=== PATIENT | female | born 1985 | race American Indian/Alaskan Native ===

== ENCOUNTER 2020-07-14 00:19 | Emergency (ER) | payer MEDICAID ==
[2020-07-14 02:00] VITALS: BP 128/72
[2020-07-14] MEDS ORDERED: ONDANSETRON 4 MG/2 ML INJ IV ONE (02:57)
[2020-07-14] MEDS ORDERED: FAMOTIDINE 20 MG/2 ML INJ IV ONE (02:57)
[2020-07-14] MEDS ORDERED: MORPHINE 4 MG/1 ML INJ IV ONE (02:57)
[2020-07-14 03:04] LABS: Basophils % (Auto) 0.2 % (0.0-1.8); Hematocrit 29.9 % (30.3-42.9); Hemoglobin 9.9 gm/dl (10.1-14.3); Lymphocytes # (Auto) 0.7 K/mm3 (1.2-5.4); Lymphocytes % (Auto) 8.6 % (13.4-35.0); Mean Corpuscular HGB Conc 33 % (30-34); Mean Corpuscular Volume 79 fl (79-97); Monocytes # (Auto) 0.2 K/mm3 (0.0-0.8); Monocytes % (Auto) 2.7 % (0.0-7.3); Platelet Count 307 K/mm3 (140-440); Red Blood Count 3.79 M/mm3 (3.65-5.03); Red Cell Distribution Width 13.4 % (13.2-15.2)
[2020-07-14 03:17] LABS: Alanine Aminotransferase 7 units/L (7-56); Albumin 3.8 g/dL (3.9-5); Blood Urea Nitrogen 8 mg/dL (7-17); Calcium 8.6 mg/dL (8.4-10.2); Hemolysis Index 1
[2020-07-14 03:18] LABS: BUN/Creatinine Ratio 13
[2020-07-14 03:29] LABS: Bacteria,Urine 1+ /HPF (Negative); Bilirubin,Urine NEG (Negative); Blood,Urine NEG (Negative); Color,Urine Yellow (Yellow); Mucus,Urine 3+ /HPF; Urobilinogen,Urine < 2.0 mg/dL (<2.0)
--- NOTE | 2020-07-14 05:19 | Cat Scan Report ---
CT ABDOMEN AND PELVIS WITH CONTRAST INDICATION: abdominal pain CONTRAST: 100 cc Omnipaque 300 IV COMPARISON: None available. All CT scans at this location are performed using CT dose reduction for ALARA by means of automated e xposure control. FINDINGS: Lung bases are clear. Calcified nodes are seen in the right hilum. In the subcutaneous tissues of the gluteal regions bilaterally extending into the lower back, symmetr ic extensive stool patchy areas of increased density are seen with a mildly nodular appearance though linear density predominates. These areas measure up to 62 Hounsfield units in density and thus are m oderately hyperdense. Largest single confluent area is noted laterally on the left measuring 18 mm bu t the density is widespread in this region. This extends in the fat medially on both right and left i n the gluteal areas. I do not see an obvious muscular abnormality however. This process is not seen m ore superiorly in the abdominal subcutaneous tissues. Multiple small hypodensities in the liver probably are cysts. No other abdominal masses are seen. Gal lbladder and bile ducts appear within normal limits. No retroperitoneal or pelvic hemorrhage is seen. No urinary obstructive changes are noted. No evidence of bowel obstruction is seen. Appendix is not visualized. Small amount of nonspecific free fluid is seen in the pelvis. No adnexal masses are seen. IMPRESSION: 1. No acute abnormalities are seen in the abdomen or pelvis 2. Unusual extensive subcutaneous density in the gluteal regions bilaterally as described. This could be due to extensive subcutaneous hemorrhage but the symmetric and extensive appearance suggests a ch ronic process. This has a nodular component. I do not see this extending into the abdomen or pelvis a nd no muscular involvement is seen. Etiology is unclear. Clinical correlation in these areas is shaun sun. Signer Name: Jd Campos MD Signed: 07/14/2020 5:14 AM Workstation Name: [id number]
--- NOTE | 2020-07-14 06:07 | Emergency Department Report ---
ED Abdominal Pain HPI - General Chief Complaint: Abdominal Pain Stated Complaint: NAUSEA/VOMITING/ABDOMINAL PAIN Source: patient, EMS Mode of arrival: Ambulatory Limitations: No Limitations - History of Present Illness Initial Comments: Patient is a nulliparous 34-year-old -[place] female with no past medical history presents to the ED with complaint of acute onset persistent severe diffuse abdominal pain with intractable nausea and vomiting for the last 2 days. Patient states that she has not been able to keep anything down especially in the last 24 hours. Patient states that she was initially evaluated at another hospital but her symptoms have been persistent even after being discharged from the same hospital. Patient denies diarrhea, dysuria, urinary frequency and urgency, chest pain, shortness of breath, fever, chills, cough, vaginal bleeding, vaginal discharge, low back pain, traumatic injury, headache or dizziness. MD Complaint: abdominal pain, other (nausea and vomiting) -: Sudden, week(s) (1) Location: diffuse Radiation: none Migration to: no migration Severity: severe Severity scale (0 -10): 8 Quality: cramping, aching, sharp Consistency: constant Improves With: nothing Worsens With: eating, vomiting Associated Symptoms: nausea, vomiting. denies: fever, constipation, dysuria, hematemesis, melena, anorexia - Related Data LMP Date: 06/20/20 Previous Rx's Medication Instructions Recorded Last Taken Type Dicyclomine [Bentyl] 20 mg PO Q6H PRN #30 tablet 07/14/20 Unknown Rx Famotidine [Pepcid] 20 mg PO BID #40 tablet 07/14/20 Unknown Rx Ondansetron [Zofran Odt] 4 mg PO Q6HR PRN #20 tab.rapdis 07/14/20 Unknown Rx Allergies Allergy/AdvReac Type Severity Reaction Status Date / Time No Known Allergies Allergy Unverified 07/14/20 02:00 ED Review of Systems ROS: Stated complaint: NAUSEA/VOMITING/ABDOMINAL PAIN Other details as noted in HPI Constitutional: denies: chills, fever Eyes: denies: eye pain, eye discharge, vision change ENT: denies: ear pain, throat pain Respiratory: denies: cough, shortness of breath, wheezing Cardiovascular: denies: chest pain, palpitations Endocrine: no symptoms reported Gastrointestinal: abdominal pain, nausea, vomiting. denies: diarrhea Genitourinary: denies: urgency, dysuria, discharge Musculoskeletal: denies: back pain, joint swelling, arthralgia Skin: denies: rash, lesions Neurological: denies: headache, weakness, paresthesias Psychiatric: denies: anxiety, depression Hematological/Lymphatic: denies: easy bleeding, easy bruising ED Past Medical Hx - Past Medical History Previous Medical History?: No - Surgical History Past Surgical History?: No - Social History Smoking Status: Never Smoker Substance Use Type: None - Medications Home Medications: Home Medications Medication Instructions Recorded Confirmed Last Taken Type Dicyclomine [Bentyl] 20 mg PO Q6H PRN #30 tablet 07/14/20 Unknown Rx Famotidine [Pepcid] 20 mg PO BID #40 tablet 07/14/20 Unknown Rx Ondansetron [Zofran Odt] 4 mg PO Q6HR PRN #20 tab.rapdis 07/14/20 Unknown Rx ED Physical Exam - General Limitations: No Limitations General appearance: alert, in no apparent distress - Head Head exam: Present: atraumatic, normocephalic, normal inspection - Eye Eye exam: Present: normal appearance, PERRL, EOMI Pupils: Present: normal accommodation - ENT ENT exam: Present: normal exam, normal orophraynx, mucous membranes moist, TM's normal bilaterally, normal external ear exam - Neck Neck exam: Present: normal inspection, full ROM - Respiratory Respiratory exam: Present: normal lung sounds bilaterally. Absent: respiratory distress, wheezes, rales, rhonchi, stridor, chest wall tenderness, accessory mus lizzy use, decreased breath sounds, prolonged expiratory - Cardiovascular Cardiovascular Exam: Present: normal rhythm, tachycardia, normal heart sounds. Absent: systolic murmur, diastolic murmur, rubs, gallop - GI/Abdominal GI/Abdominal exam: Present: soft, tenderness (Palpable diffuse abdominal tenderness), normal bowel sounds, hyperactive bowel sounds. Absent: guarding, rebound, rigid - Bi-manual exam: Present: other (Pelvic exam deferred, patient declined) - Extremities Exam Extremities exam: Present: normal inspection, full ROM, normal capillary refill - Back Exam Back exam: Present: normal inspection, full ROM. Absent: tenderness, CVA tenderness (R), CVA tenderness (L), muscle spasm, paraspinal tenderness - Neurological Exam Neurological exam: Present: alert, oriented X3, CN II-XII intact, normal gait, reflexes normal - Psychiatric Psychiatric exam: Present: normal affect, normal mood, anxious - Skin Skin exam: Present: warm, dry, intact, normal color. Absent: rash ED Course Vital Signs 07/14/20 01:47 Temperature 99.0 F Pulse Rate 101 H Respiratory 16 Rate Blood Pressure 128/72 O2 Sat by Pulse 100 Oximetry ED Medical Decision Making - Lab Data Result diagrams: 07/14/20 02:37 07/14/20 02:37 - Radiology Data Radiology results: report reviewed, image reviewed [facility] [address] [place] [address] Cat Scan Report Signed Patient: DONTA PIERSON MR#: [id number] : 1985 Acct:[id number] Age/Sex: 34 / F ADM Date: 07/14/20 Loc: ED Attending Dr: Ordering Physician: PETER GÓMEZ Date of Service: 07/14/20 Procedure(s): CT abdomen pelvis w con Accession Number(s): [id number] cc: PETER GÓMZE CT ABDOMEN AND PELVIS WITH CONTRAST INDICATION: abdominal pain CONTRAST: 100 cc Omnipaque 300 IV COMPARISON: None available. All CT scans at this location are performed using CT dose reduction for ALARA by means of automated exposure control. FINDINGS: Lung bases are clear. Calcified nodes are seen in the right hilum. In the subcutaneous tissues of the gluteal regions bilaterally extending into the lower back, symmetric extensive stool patchy areas of increased density are seen with a mildly nodular appearance though linear density predominates. These areas measure up to 62 Hounsfield units in density and thus are moderately hyperdense. Largest single confluent area is noted laterally on the left measuring 18 mm but the density is widespread in this region. This extends in the fat medially on both right and left in the gluteal areas. I do not see an obvious muscular abnormality however. This process is not seen more superiorly in the abdominal subcutaneous tissues. Multiple small hypodensities in the liver probably are cysts. No other abdomina l masses are seen. Gallbladder and bile ducts appear within normal limits. No retroperitoneal or pe lvic hemorrhage is seen. No urinary obstructive changes are noted. No evidence of bowel obstruction is seen. Appendix is not visualized. Small amount of nonspecific free fluid is seen in the pelvis. No adnexal masses are seen. IMPRESSION: 1. No acute abnormalities are seen in the abdomen or pelvis 2. Unusual extensive subcutaneous density in the gluteal regions bilaterally as described. This could be due to extensive subcutaneous hemorrhage but the symmetric and extensive appearance suggests a chronic process. This has a nodular component. I do not see this extending into the abdomen or pelvis and no muscular involvement is seen. Etiology is unclear. Clinical correlation in these areas is suggested. Signer Name: Jd Campos MD Signed: 07/14/2020 5:14 AM Workstation Name: [id number] Transcribed By: CHRISTOPHER Dictated By: Jd Campos MD Electronically Authenticated By: Jd Campos MD Signed Date/Time: 07/14/20513 DD/ 6 TD/TT: - Medical Decision Making This is a nulliparous 34-year-old -[place] female with no past medical history presents to the ED with complaint of acute onset persistent severe diffuse abdominal pain with intractable nausea and vomiting for the last 2 days. Patient states that she has not been able to keep anything down especially in the last 24 hours. Patient states that she was initially evaluated at another hospital but her symptoms have been persistent even after being discharged from the same hospital. In the ED, patient is alert and oriented x3 and is not in distress, anxious, dramatic, rolling on the floor to show how severe her symptoms are but is otherwise hemodynamically stable. Patient asking for specific pain medications, mainly morphine and Benadryl "to calm me down" during the physical exam. Lab test results were reviewed and are all nonactionable. Patient was treated for pain in the ED and also given antiemetics, normal saline, and antacids. Abdomen pelvis CT scan with contrast showed no acute abnormalities. On reevaluation, patient symptoms resolved with medications. Patient was discharged home on prescriptions of pain medications and antiemetics and advised to follow-up with her primary care physician in 3 to 5 days for reevaluation. Patient was advised to return to the ED immediately if symptoms get worse. - Differential Diagnosis Gastroenteritis; appendicitis; ovarian cyst; pancreatitis; GERD; UTI; kidne Critical care attestation.: If time is entered above; I have spent that time in minutes in the direct care of this critically ill patient, excluding procedure time. ED Disposition Clinical Impression: Abdominal pain, generalized, Nausea and vomiting in adult patient, Viral gastroenteritis Disposition: DC-01 TO HOME OR SELFCARE Is pt being admited?: No Does the pt Need Aspirin: No Condition: Stable Instructions: Abdominal Pain (ED), Abdominal Pain, Adult, [id number], Nausea and Vomiting, Adult, [id number] Additional Instructions: All lab test results are reviewed and are all nonactionable. Abdomen pelvis CT scan with contrast showed no acute abnormalities. Your symptoms are likely due to viral gastroenteritis. Therefore maintain a clear liquid diet for 12 to 24 hours, take medications with food, drink plenty of fluids and follow-up with your primary care physician in 3 to 5 days for reevaluation. Return to the ED immediately if symptoms get worse. Prescriptions: Dicyclomine [Bentyl] 20 mg PO Q6H PRN #30 tablet PRN Reason: abdominal pain Famotidine [Pepcid] 20 mg PO BID #40 tablet Ondansetron [Zofran Odt] 4 mg PO Q6HR PRN #20 tab.rapdis PRN Reason: Nausea Referrals: [facility] [Provider Group] - 3-5 Days Time of Disposition: 06:08 Print Language: MALAY
== END 2020-07-14 06:30 | disposition home or self-care (01) ==
LOC: ED 00:19
DX: A08.4 Viral intestinal infection, unspecified (principal); Z79.899 Other long term (current) drug therapy
CPT/HCPCS: 36415; 74177; 80053; 81001; 84703; 85025; 96374; 96375; 99284; J2270; J2405; Q9967